=== PATIENT | male | born 1965 | race Caucasian/White ===

== ENCOUNTER 2020-01-05 06:06 | Day surgery (SDC) | payer OTHER ==
[~2020-01-05] VITALS: Ht 170.2 cm; Wt 90.0 kg
[~2020-01-05 06:06] MED LIST: ATOR20 PO; CARB200 PO; METF500 PO
--- NOTE | 2020-01-05 08:52 | NUR ---
01/05/20 0852 DMITRIY BLUE PATIENT TO PACU WITH WET UPPER RIGHT CORNER OF SURGICAL BED. APPEARS IV LINE WAS CUT OR REMOVED FROM CONNECTOR. NEW IV TUBING PRIMED AND ATTACHED TO IV CATHETER WITH ASSISTANCE OF REESE DUDLEY. NO BODILY FLUIDS SPILL. IV LINE STILL INTACT AND PATENT.
== END 2020-01-05 09:44 | disposition home or self-care (01) ==
LOC: ORSCSDS 06:06
PROVIDERS: Orthopaedic Surgery
PROC: 0SBC4ZZ Excision of Right Knee Joint, Percutaneous Endoscopic Approach (ICD-10-PCS; principal; 2020-01-05 07:30)
DX: S83.231A Complex tear of medial meniscus, current injury, right knee, initial encounter (principal); M94.261 Chondromalacia, right knee; E11.9 Type 2 diabetes mellitus without complications; Z79.84 Long term (current) use of oral hypoglycemic drugs; Z79.899 Other long term (current) drug therapy
CPT/HCPCS: 82947; J0690; J1885; J2250; J2704; J3010; J7120